=== PATIENT | female | born 1945 ===

== ENCOUNTER → 2018-12-22 | Outpatient (CLI) | payer MEDICARE | LOC: PLD 07:35 → LAB SHORT 07:35 | DX: D48.5 Neoplasm of uncertain behavior of skin (principal) | CPT/HCPCS: 88305 ==

== ENCOUNTER → 2022-07-17 | Outpatient (CLI) | payer MEDICARE | END | disposition home or self-care (01) | LOC: PLD 08:58 → LAB SHORT 08:58 | DX: D04.61 Carcinoma in situ of skin of right upper limb, including shoulder (principal); L57.0 Actinic keratosis; L81.4 Other melanin hyperpigmentation; L57.8 Other skin changes due to chronic exposure to nonionizing radiation; B88.9 Infestation, unspecified | CPT/HCPCS: 88305 ==